=== PATIENT | female | born 1990 | race Asian ===

== ENCOUNTER 2022-09-05 09:57 | Inpatient (IN) | payer OTHER ==
[2022-09-10] MEDS ORDERED: Bupivacaine 0.25% HCL 30 ML VIAL ONE (08:00)
[2022-09-10] MEDS ORDERED: Lidocaine 2% PF 5 ML VIAL ONE (08:00)
[2022-09-10 19:15] VITALS: BMI 28.7
[2022-09-10] MEDS ORDERED: hydrALAZINE 20 MG/ML VIAL SLOW IVP PRN (19:26)
[2022-09-10] MEDS ORDERED: Misoprostol 100 MCG TAB VAG SCH (19:26)
[2022-09-10] MEDS ORDERED: Promethazine HCl 25 MG/ML VIAL IM PRN (19:26)
[2022-09-10] MEDS ORDERED: Methylergonovine 0.2 MG/ML VIAL IM PRN (19:26)
[2022-09-10] MEDS ORDERED: Acetaminophen 500 MG TAB PO PRN (19:26)
[2022-09-10] MEDS ORDERED: HYDROcodone/Acetaminophen 5/325 mg Tablet PO PRN ×2 (19:26)
[2022-09-10] MEDS ORDERED: Lidocaine 1% (PF) 30 ML VIAL SC PRN (19:26)
[2022-09-10] MEDS ORDERED: Ondansetron PF 4 MG/2 ML Vial IVP PRN (19:26)
[2022-09-10] MEDS ORDERED: Ibuprofen 800 MG TAB PO PRN (19:26)
[2022-09-10] MEDS ORDERED: Butorphanol Tartrate 1 MG/ML VIAL SLOW IVP PRN (19:26)
[2022-09-10] MEDS ORDERED: Lactated Ringer's 1,000 ML IV SCH (19:26)
[2022-09-10] MEDS ORDERED: Diphenoxylate HCl/Atropine Tablet PO PRN ×2 (19:26)
[2022-09-10] MEDS ORDERED: NS w/ Oxytocin 30 units 500 ML IV SCH ×2 (19:26)
[2022-09-10] MEDS ORDERED: Tranexamic Acid 1,000 MG/10 ML VIAL IVP PRN (19:26)
[2022-09-10] MEDS ORDERED: Misoprostol 200 MCG TAB PR PRN (19:26)
[2022-09-10] MEDS ORDERED: Carboprost 250 MCG/ML AMP IM PRN (19:26)
[2022-09-10 19:32] LABS: Hemoglobin 13.9 g/dL (12.0-15.5); Mean Corpuscular HGB CONC 33.7 g/dL (32.0-36.0); Mean Corpuscular Hemoglobin 29.3 pg (27.0-33.0); Mean Corpuscular Volume 86.7 fl (81.6-98.3); Mean Platelet Volume 10.6 fl (7.4-10.4); Platelet Count 306 10x3/uL (150-450); RBC Distribution Width 13.2 % (11.5-14.5); Red Blood Cell (RBC) Count 4.75 10x6/uL (3.90-5.03)
[2022-09-10 22:11] LABS: HBSAg Index 0.12 S/CO (0-0.99); Hep B Surf Ag - L&D Non-Reactive S/CO (NonReactive)
[2022-09-10 22:12] LABS: Syphilis Antibody Nonreactive (Nonreactive); Syphilis Antibody Index 0.04 S/CO (<1.00 Non-Reactive)
[2022-09-10] MEDS ORDERED: Fentanyl 100 MCG/2 ML VIAL SLOW IVP PRN (23:38)
[2022-09-10] MEDS ORDERED: Promethazine HCl 25 MG in Sodium Chloride 0.9% 50 ML IVPB PRN (23:39)
[2022-09-11] MEDS ORDERED: Fentanyl 2 mcg/Bup 0.1% Cadd 100 ML ONE (00:15)
[2022-09-11] MEDS ORDERED: Bupivacaine 0.75% W/DEXTROSE 8.25% 2 ML AMP ONE (00:29)
[2022-09-11] MEDS ORDERED: Acetaminophen 325 MG TAB PO PRN (01:09)
[2022-09-11] MEDS ORDERED: diphenhydrAMINE 50 MG/ML VIAL IVP PRN (01:09)
[2022-09-11] MEDS ORDERED: ePHEDrine Sulfate 50 MG/10 ML VIAL SLOW IVP PRN (01:09)
[2022-09-11] MEDS ORDERED: Promethazine HCl 25 MG/ML VIAL IM PRN (01:09)
[2022-09-11] MEDS ORDERED: Naloxone HCl 0.4 mg/ml Vial IVP PRN ×2 (01:09)
[2022-09-11] MEDS ORDERED: Ondansetron PF 4 MG/2 ML Vial IVP PRN (01:09)
[2022-09-11] MEDS ORDERED: Moisturizing Cream (Eucerin) 113 GM JAR TOP PRN (01:09)
[2022-09-11] MEDS ORDERED: Lactated Ringer's 500 ML IV PRN (01:09)
[2022-09-11] MEDS ORDERED: Fentanyl 2 mcg/Bupivacaine 0.1% Cassette 100 ML EPIDURAL SCH (01:15)
[2022-09-11] MEDS ORDERED: Communication Order-Pharmacy FS SCH (01:15)
[2022-09-11] MEDS ORDERED: Boostrix 0.5 ML (Tdap) VIAL (>/=7 yrs of age) IM ONE (01:28)
[2022-09-11] MEDS ORDERED: traMADol HCl 50 MG TAB PO PRN (01:28)
[2022-09-11] MEDS ORDERED: Bisacodyl 10 MG SUPP PR PRN (01:28)
[2022-09-11] MEDS ORDERED: Benzocaine-Menthol 82.5 ML CAN TOP PRN (01:28)
[2022-09-11] MEDS ORDERED: Milk Of Magnesia 30 ML UDCUP PO PRN (01:28)
[2022-09-11] MEDS ORDERED: hydrALAZINE 20 MG/ML VIAL SLOW IVP PRN (01:28)
[2022-09-11] MEDS: Ibuprofen 800 MG TAB PO SCH ×3 (05:38→21:27)
[2022-09-11] MEDS: Docusate 100 MG CAP PO SCH ×2 (08:50→21:27)
[2022-09-11] MEDS: Ferrous Sulfate 325 MG TAB PO SCH (16:50)
[2022-09-12] MEDS: Ibuprofen 800 MG TAB PO SCH ×2 (05:03→13:47)
[2022-09-12 07:32] VITALS: BP 112/73; TEMP 97.5
[2022-09-12] MEDS: Ferrous Sulfate 325 MG TAB PO SCH (08:19)
[2022-09-12] MEDS: Docusate 100 MG CAP PO SCH (08:25)
== END 2022-09-12 16:10 | disposition home or self-care (01) | DRG 807 ==
LOC: CSHLD 09-10 18:15 → CSHPP 09-11 04:10
PROVIDERS: ADMIT Obstetrics & Gynecology; ATTEND Obstetrics & Gynecology
PROC: 10D07Z6 Extraction of Products of Conception, Vacuum, Via Natural or Artificial Opening (ICD-10-PCS; principal; 2022-09-11)
PROC: 0UQMXZZ Repair Vulva, External Approach (ICD-10-PCS; 2022-09-11)
DX: O48.0 Post-term pregnancy (principal); Z37.0 Single live birth; Z3A.40 40 weeks gestation of pregnancy; O70.0 First degree perineal laceration during delivery; O76 Abnormality in fetal heart rate and rhythm complicating labor and delivery
CPT/HCPCS: 36415; 85027; 86780; 86850; 86900; 86901; 87340; J2001; J3010; J3490; S0020